=== PATIENT | male | born 1985 | race African-American/Black ===

== ENCOUNTER 2016-11-23 18:50 | Emergency (ER) | payer OTHER ==
[2016-11-23 18:57] VITALS: BP 98/58
--- NOTE | 2016-11-23 19:07 | UC ---
Back Pain HPI - HPI Summary HPI Summary: 31 YEAR OLD MALE PRESENTS WITH COMPLAINS RIGHT UPPER BACK PAIN. - History of Current Complaint Chief Complaint: UCBackPain Stated Complaint: BACK PAIN Time Seen by Provider: 11/23/16 19:00 Hx Obtained From: Patient Onset/Duration: Sudden Onset Timing: Constant Severity Initially: Moderate Severity Currently: Moderate Pain Scale Used: 0-10 Numeric - 5 Character: Sharp Aggravating: Movement Associated Signs And Symptoms: Positive: Negative - Allergies/Home Medications Allergies/Adverse Reactions: Allergies Allergy/AdvReac Type Severity Reaction Status Date / Time Iohexol [From Omnipaque] Allergy Itching Verified 11/23/16 18:57 PMH/Surg Hx/FS Hx/Imm Hx - Surgical History Surgical History: Yes Surgery Procedure, Year, and Place: EYE SX FOR LAZY EYE - Family History Known Family History: Positive: Other - rheumatoid arthritis - Social History Alcohol Use: None Substance Use Type: None Smoking Status (MU): Former Smoker Review of Systems Constitutional: Negative Skin: Negative Eyes: Negative ENT: Negative Respiratory: Negative Cardiovascular: Negative Gastrointestinal: Negative Genitourinary: Negative Motor: Negative Neurovascular: Negative Musculoskeletal: Other: - RIGHT UPPER BACK PAIN Neurological: Negative Psychological: Negative All Other Systems Reviewed And Are Negative: Yes Physical Exam Triage Information Reviewed: Yes Vital Signs: Initial Vital Signs Temp 36.3 C 11/23/16 18:52 Pulse 78 11/23/16 18:52 Resp 18 11/23/16 18:52 BP 98/58 11/23/16 18:52 Pulse Ox 100 11/23/16 18:52 Eye Exam: Normal ENT Exam: Normal Dental Exam: Normal Neck exam: Normal Neck: Positive: 1 Respiratory Exam: Normal Cardiovascular Exam: Normal Abdominal Exam: Normal Musculoskeletal: Positive: Other: - RIGHT UPPER BACK PAIN Neurological Exam: Normal Psychological Exam: Normal Skin Exam: Normal Back Pain Course/Dx - Differential Dx/Diagnosis Provider Diagnoses: RIGHT UPPER BACK PAIN/SPASM Discharge - Discharge Plan Condition: Stable Disposition: HOME Prescriptions: Methocarbamol TAB* [Robaxin 500 MG TAB*] 500 mg PO TID PRN #30 tab PRN Reason: Spasms - Back Naproxen [Naprosyn 500 mg] 500 mg PO BID PRN #30 tab PRN Reason: Pain Patient Education Materials: Muscle Spasm (ED) Referrals: Scottie Diego MD [Primary Care Provider] -
== END 2016-11-23 19:30 | disposition home or self-care (01) ==
LOC: UCEAST 18:50
DX: M54.6 Pain in thoracic spine (principal); M62.830 Muscle spasm of back; Z91.041 Radiographic dye allergy status; Z87.891 Personal history of nicotine dependence
CPT/HCPCS: 99212; G0463

== ENCOUNTER 2017-09-14 21:09 | Emergency (ER) | payer SELFPAY ==
--- NOTE | 2017-09-14 21:56 | RAD ---
INDICATION: Left wrist pain COMPARISON: None. TECHNIQUE: 3 views left wrist. REPORT: The visualized bones are properly aligned and well corticated. The joint spaces are normal.There is no fracture, dislocation or other focal osseous abnormality. IMPRESSION: Normal radiograph of the left wrist. If the patient's symptoms persist, follow-up imaging is recommended.
[2017-09-14] MEDS ORDERED: traMADol TAB* 50 MG PO ONE (22:18)
--- NOTE | 2017-09-14 22:18 | ED ---
Upper Extremity Pain - HPI Summary HPI Summary: 32 male presents with left wrist injury today. His wrist was bent backwards when he wrestling with his brothers. He has pain over the radial aspect of his left wrist. Denies any previous fracture area. Denies any other injury. No numbness or tingling. He is left-handed. Works at [employer]. has edema to left wrist present. no elbow pain. - History of Current Complaint Chief Complaint: EDExtremityUpper Stated Complaint: LT WRIST INJURY Time Seen by Provider: 09/14/17 21:52 - Allergies/Home Medications Allergies/Adverse Reactions: Allergies Allergy/AdvReac Type Severity Reaction Status Date / Time iohexol Allergy Itching Verified 09/14/17 21:24 PMH/Surg Hx/FS Hx/Imm Hx Endocrine/Hematology History: Denies: Hx Diabetes, Hx Thyroid Disease Cardiovascular History: Denies: Hx Congestive Heart Failure, Hx Hypertension, Hx Pacemaker/ICD Respiratory History: Denies: Hx Asthma, Hx Chronic Obstructive Pulmonary Disease (COPD) GI History: Reports: Other GI Disorders - pancreatitis Denies: Hx Ulcer Musculoskeletal History: Denies: Hx Scoliosis Sensory History: Denies: Hx Hearing Aid Psychiatric History: Denies: Hx Panic Disorder - Surgical History Surgery Procedure, Year, and Place: EYE SX FOR LAZY EYE - Immunization History Date of Tetanus Vaccine: unknown Date of Influenza Vaccine: 2013 Infectious Disease History: No Infectious Disease History: Denies: Hx Clostridium Difficile, Hx Hepatitis, Hx Human Immunodeficiency Virus (HIV), Traveled Outside the [place] in Last 30 Days - Family History Known Family History: Positive: Other - rheumatoid arthritis - Social History Alcohol Use: None Hx Substance Use: No Substance Use Type: Reports: None Hx Tobacco Use: Yes Smoking Status (MU): Former Smoker Review of Systems Negative: Fever Negative: Chest Pain Negative: Shortness Of Breath Positive: Myalgia - left wrist pain All Other Systems Reviewed And Are Negative: Yes Physical Exam Triage Information Reviewed: Yes Vital Signs On Initial Exam: Initial Vitals Temp Pulse Resp BP Pulse Ox 99.2 F 83 16 121/64 97 09/14/17 21:21 09/14/17 21:21 09/14/17 21:21 09/14/17 21:21 09/14/17 21:21 Vital Signs Reviewed: Yes Appearance: Positive: Well-Appearing Skin: Positive: Warm, Dry Head/Face: Positive: Normal Head/Face Inspection Eyes: Positive: Normal, Conjunctiva Clear ENT: Positive: Pharynx normal Respiratory/Lung Sounds: Positive: Clear to Auscultation, Breath Sounds Present Cardiovascular: Positive: Normal, RRR Musculoskeletal: Positive: Limited @ - left wrist, Other - tenderness snuff box , good pulses, capillary refill<2 secs, limited ROM thumb with pain Neurological: Positive: Normal Psychiatric: Positive: Normal Procedures - Splinting left wrist Location: left wrist Hand-Made Type: orthoglass Splint: thumb spica Pre-Proc Neuro Vasc Exam: normal Post-Proc Neuro Vasc Exam: normal Diagnostics - Vital Signs Vital Signs Temp Pulse Resp BP Pulse Ox 09/14/17 21:21 99.2 F 83 16 121/64 97 - Laboratory Lab Statement: Any lab studies that have been ordered have been reviewed, and results considered in the medical decision making process. - Radiology wrist Xray Interpretation: No Acute Changes Radiology Interpretation Completed By: Radiologist Course/Dx - Course Course Of Treatment: 32 male presents with left wrist injury today. His wrist was bent backwards when he wrestling with his brothers. He has pain over the radial aspect of his left wrist. Denies any previous fracture area. Denies any other injury. No numbness or tingling. He is left-handed. Works at [employer]. has edema to left wrist present. no elbow pain. On exam tenderness snuffbox left wrist. Neurovascular intact. X-ray shows no fracture. With snuffbox tenderness we'll treat as potential scaphoid fracture. Placed in thumb spica splint. We'll have follow-up with orthopedic. Patient understands and agrees plan. - Diagnoses Differential Diagnosis/HQI/PQRI: Positive: Fracture (Closed), Strain, Sprain Provider Diagnoses: Left wrist injury, Scaphoid fracture Discharge - Sign-Out/Discharge Documenting (check all that apply): Discharge/Admit/Transfer - Discharge Plan Condition: Good Disposition: HOME Prescriptions: traMADol TAB* [Ultram*] 50 mg PO Q8H PRN #6 tab MDD 3 PRN Reason: Pain Patient Education Materials: Suspected Fracture (ED) Referrals: Scottie Diego MD [Primary Care Provider] - Clare Mayfield MD [Medical Doctor] - Additional Instructions: Keep splint on area and keep dry Call ortho office to set up appointment for follow up Use ibuprofen or tyenlol for pain every 6 hours Ice, elevate Return to ED if develop any new or worsening symptoms - Billing Disposition and Condition Condition: GOOD Disposition: Home
[2017-09-14 22:38] VITALS: BP 121/72
== END 2017-09-14 22:36 | disposition home or self-care (01) ==
LOC: ED 21:09
DX: S62.002A Unspecified fracture of navicular [scaphoid] bone of left wrist, initial encounter for closed fracture (principal); X58.XXXA Exposure to other specified factors, initial encounter; Y93.83 Activity, rough housing and horseplay; Z87.891 Personal history of nicotine dependence
CPT/HCPCS: 99282; A9270-GY